=== PATIENT | female | born 1990 ===

== ENCOUNTER 2024-05-15 13:46 | Outpatient (CLI) | payer BC, SELFPAY ==
--- NOTE | ~2024-05-15 | US_ITS ---
EXAMINATION: US thyroid DATE: 05/15/2024 14:06 INDICATION: thyroiditis. TECHNIQUE: Multiple ultrasound images of the thyroid were obtained. COMPARISON: None. FINDINGS: The right thyroid lobe measures 5.7 x 1.3 x 1.7 cm. The left thyroid lobe measures 6.4 x 2.9 x 3.4 c m. In the right thyroid lobe, there is a 9 mm solid, isoechoic, wider than tall nodule with ill-defi brianna margin without echogenic foci (TI-RADS TR3). In the left thyroid lobe, there is a 3.4 cm solid, h ypoechoic, wider than tall nodule with smooth margin without echogenic foci (TR4). In the left thyroi d lobe, there is a 2.4 cm solid, hypoechoic, wider than tall nodule with smooth margin without echoge neftali foci (TR4). IMPRESSION: 1. Multinodular goiter. Ultrasound-guided fine-needle aspiration of 2 nodules in left thyroid lobe is recommended. Reviewed, dictated and finalized at location A. IMPRESSION: 1. Multinodular goiter. Ultrasound-guided fine-needle aspiration of 2 nodules i n left thyroid lobe is recommended.
== END 2024-05-15 13:47 | disposition home or self-care (01) ==
PROVIDERS: PCP Student in an Organized Health Care Education/Training Program; Visit Provider Student in an Organized Health Care Education/Training Program
DX: O90.5 Postpartum thyroiditis (principal); E04.2 Nontoxic multinodular goiter
CPT/HCPCS: 76536